=== PATIENT | female | born 1960 ===

== ENCOUNTER 2018-05-04 11:17 | Emergency (ER) | payer BC ==
[2018-05-04 11:17] VITALS: BMI 38.7
[2018-05-04 11:24] VITALS: RESP 18; TEMP 97.8; O2SAT 97
--- NOTE | 2018-05-04 12:42 | RAD ---
Date of service: 05/04/2018 PROCEDURE: Left Wrist Radiographs. HISTORY: Medial pain COMPARISON: None. FINDINGS: BONES: No acute fracture. JOINTS: Unremarkable. SOFT TISSUES: Dorsal carpal soft tissue swelling. OTHER FINDINGS: None. IMPRESSION: Mild dorsal wrist soft tissue swelling without demonstrated fracture or dislocation.
--- NOTE | 2018-05-04 13:01 | ED PDOC ---
Upper Extremity Pain/Injury Time Seen by Provider: 05/04/18 11:46 Chief Complaint (Nursing): Finger,Hand,&Wrist Chief Complaint (Provider): Finger,Hand,&Wrist History Per: Patient History/Exam Limitations: no limitations Onset/Duration Of Symptoms: Days (x7) Current Symptoms Are (Timing): Still Present Additional Complaint(s): Patient is a 58 y/o female with a PMHx of HTN who presents to the ED for evaluation of left wrist pain and swelling for the past week. The patient works as a teacher and believes constantly having to get up from the ground has contributed to her symptoms. Patient visited her PCP who recommended a wrist splint, Aleve, and Icy Hot. Today, patient was having more pain, thus, prompting her ED visit. Patient denies numbness, weakness, and trauma to her left hand. Of note, patient is right handed. PCP: Dr. David Bronson Past Medical History Reviewed: Historical Data, Nursing Documentation, Vital Signs Vital Signs: Last Vital Signs Temp 97.8 F 05/04/18 11:20 Pulse 76 05/04/18 11:20 Resp 18 05/04/18 11:20 BP 164/105 H 05/04/18 11:25 Pulse Ox 97 05/04/18 11:20 - Medical History PMH: HTN, Kidney Stones Denies: Colonic Polyps - Surgical History Surgical History: No Surg Hx - Family History Family History: States: Unknown Family Hx - Home Medications Home Medications: Ambulatory Orders Medication Instructions Recorded traMADol [Ultram] 50 mg PO Q8 PRN #12 tab 02/02/16 hydroCHLOROthiazide [Hydrodiuril] 25 mg PO DAILY 02/03/16 predniSONE [predniSONE Tab] 5 mg PO ASDIR 02/03/16 - Allergies Allergies/Adverse Reactions: Allergies Allergy/AdvReac Type Severity Reaction Status Date / Time No Known Allergies Allergy Verified 02/02/16 18:33 Review of Systems ROS Statement: Except As Marked, All Systems Reviewed And Found Negative Musculoskeletal: Positive for: Other (Left Wrist Pain and Swelling) Neurological: Negative for: Weakness, Numbness Physical Exam - Reviewed Nursing Documentation Reviewed: Yes Vital Signs Reviewed: Yes - Physical Exam Appears: Positive for: Non-toxic, No Acute Distress Head Exam: Positive for: ATRAUMATIC, NORMAL INSPECTION, NORMOCEPHALIC Skin: Positive for: Normal Color, Warm, Dry Eye Exam: Positive for: EOMI, Normal appearance, PERRL Neck: Positive for: Normal, Painless ROM, Supple Cardiovascular/Chest: Positive for: Regular Rate, Rhythm. Negative for: Murmur Respiratory: Positive for: Normal Breath Sounds. Negative for: Respiratory Distress Pulses-Radial (L): 2+ Pulses-Radial (R): 2+ Extremity: Positive for: Normal ROM ( in digits, however, decreased in left wrist), Tenderness (left posterior lateral wrist), Other (Sensation Intact; Scrapper Strength 5/5). Negative for: Pedal Edema, Deformity Neurologic/Psych: Positive for: Alert, Oriented. Negative for: Motor/Sensory Deficits - ECG O2 Sat by Pulse Oximetry: 97 (RA) Pulse Ox Interpretation: Normal Medical Decision Making Medical Decision Making: Time: 1203 Impression: Wrist Pain Plan: Motrin 600 mg PO Wrist, Left 3 Views [Rad] Time: 1239 FINDINGS: BONES: No acute fracture. JOINTS: Unremarkable. SOFT TISSUES: Dorsal carpal soft tissue swelling. OTHER FINDINGS: None. IMPRESSION: Mild dorsal wrist soft tissue swelling without demonstrated fracture or dislocation. Pt advised to continue splint. - Scribe Attestation: Documented by Eleuterio Watkins, acting as a scribe for Jocelyn Hernandez MD. Provider Scribe Attestation: All medical record entries made by the Scribe were at my direction and personally dictated by me. I have reviewed the chart and agree that the record accurately reflects my personal performance of the history, physical exam, medical decision making, and the department course for this patient. I have also personally directed, reviewed, and agree with the discharge instructions and disposition. Disposition - Clinical Impression Clinical Impression: Wrist arthralgia - Disposition Referrals: David Bronson MD [Staff Provider] - Disposition: Routine/Home Disposition Time: 13:40 Condition: STABLE Additional Instructions: CONTINUE CURRENT MEDICATIONS. Instructions: Joint Pain Forms: [facility] ([place]akh)
[2018-05-04 14:11] VITALS: BP 160/92; PULSE 82
== END 2018-05-04 14:05 | disposition home or self-care (01) ==
LOC: H.ER 11:17
DX: M25.532 Pain in left wrist (principal); I10 Essential (primary) hypertension; Z87.442 Personal history of urinary calculi